=== PATIENT | male | born 1985 | race Two or more races ===

== ENCOUNTER 2017-04-17 09:52 | Emergency (ER) | payer OTHER ==
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
[2017-04-17] MEDS ORDERED: PREDNISONE 20 MG TABLET PO ONE (11:05)
[2017-04-17] MEDS ORDERED: HYDROCODONE/ACETAMINOPHEN 10-325 MG TABLET PO ONE (11:06)
[2017-04-17 11:17] VITALS: BP 141/88
== END 2017-04-17 11:38 | disposition home or self-care (01) ==
LOC: ER 09:52
DX: S39.012A Strain of muscle, fascia and tendon of lower back, initial encounter (principal); X50.9XXA Other and unspecified overexertion or strenuous movements or postures, initial encounter
CPT/HCPCS: 99283; J7512

== ENCOUNTER 2018-01-30 12:24 | Emergency (ER) | payer OTHER ==
[2018-01-30] MEDS ORDERED: LIDOCAINE 5% (700 MG) TRANSDERMAL ADH..PATCH TP ONE (12:42)
[2018-01-30] MEDS ORDERED: DEXAMETHASONE 4 MG TABLET PO ONE (12:42)
[2018-01-30] MEDS ORDERED: KETOROLAC TROMETHAMINE 60 MG/2 ML SDV IM ONE (12:42)
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
[2018-01-30] MEDS ORDERED: CYCLOBENZAPRINE HCL 10 MG TABLET PO ONE (12:50)
--- NOTE | 2018-01-30 13:32 | RADIOLOGY REPORT (SQ) ---
EXAM DESCRIPTION: L SPINE WHOLE COMPLETED DATE/TIME: 01/30/2018 1:15 pm REASON FOR STUDY: low back with left sciatica COMPARISON: None. NUMBER OF VIEWS: Five views including obliques. TECHNIQUE: AP, lateral, oblique, and sacral radiographic images acquired of the lumbar spine. LIMITATIONS: None. FINDINGS: MINERALIZATION: Normal. SEGMENTATION: Normal. No transitional anatomy. ALIGNMENT: Normal. VERTEBRAE: Maintained height. No fracture or worrisome bone lesion. DISCS: Preserved height. No significant osteophytes or end plate irregularity. POSTERIOR ELEMENTS: Pedicles and facets are intact. No pars defect or posterior arch defects. HARDWARE: None in the spine. PARASPINAL SOFT TISSUES: Normal. PELVIS: Intact as visualized. No fractures or worrisome bone lesions. SI joints intact. OTHER: No other significant finding. IMPRESSION: NORMAL 5 VIEW LUMBAR SPINE. TECHNICAL DOCUMENTATION: JOB ID: [id number] All Rights Reserved Reading location - IP/workstation name: [email or web address]
[2018-01-30 13:52] VITALS: BP 129/81
== END 2018-01-30 13:51 | disposition home or self-care (01) ==
LOC: ER 12:24
DX: M54.42 Lumbago with sciatica, left side (principal); F17.210 Nicotine dependence, cigarettes, uncomplicated
CPT/HCPCS: 99406; 99283; 96372; 72110; J1885